=== PATIENT | male | born 1975 | race Caucasian/White ===

== ENCOUNTER 2021-05-28 18:09 | Observation (INO) ==
[2021-05-28 18:36] LABS: Basophils # (auto) 0.04 K/uL (0-0.2); Basophils % (auto) 0.6 %; Eosinophils # (auto) 0.31 K/uL (0-0.5); Eosinophils % (auto) 4.4 %; Hematocrit (blood only) 39.5 % (42-52); Hemoglobin 13.2 g/dL (14.0-18.0); Immature Granulocytes # (auto) 0.01 K/uL (0.00-0.02); Immature Granulocytes % (auto) 0.1 %; Lymphocytes # (auto) 1.99 K/uL (1.2-3.4); Lymphocytes % (auto) 28.2 %; Mean Corpuscular Hemoglobin 29.5 pg (25-34); Mean Corpuscular Hgb Conc 33.4 g/dL (32-36); Mean Corpuscular Volume 88.4 fL (80-100); Mean Platelet Volume 9.2 fL (7.4-10.4); Monocytes # (auto) 0.75 K/uL (0.11-0.59); Monocytes % (auto) 10.6 %; Neutrophils # (auto) 3.96 K/uL (1.4-6.5); Neutrophils % (auto) 56.1 %; Platelet Count 350 K/uL (130-400); RDW Coefficient of Variation 12.8 % (11.5-14.5); RDW Standard Deviation 41.3 fL (36.4-46.3); Red Blood Count 4.47 M/uL (4.7-6.1); White Blood Count 7.06 K/uL (4.8-10.8)
[2021-05-28 18:46] LABS: Partial Thromboplastin Time 26.5 Seconds (21.0-31.0); Prothrombin Time 10.3 Seconds (9.0-12.0)
[2021-05-28 19:02] LABS: Alanine Aminotransferase 33 U/L (12-78); Albumin Level 3.4 gm/dl (3.4-5.0); Aspartate Aminotransferase 24 U/L (15-37); Blood Urea Nitrogen 14 mg/dl (7-18); Calcium 8.3 mg/dl (8.5-10.1); Carbon Dioxide 25 mmol/L (21-32); Chloride 111 mmol/L (98-107); Creatinine Clr Calc Pharmacy 139.9 ml/min; Est GFR (African American) 102.7 ml/min; Est GFR (Non-African American) 88.6 ml/min; Glucose 103 mg/dl (70-99); Potassium 3.5 mmol/L (3.5-5.1); Sodium 143 mmol/L (136-145)
[2021-05-28 19:06] LABS: Alkaline Phosphatase 82 U/L (45-117); Bilirubin,Total 0.4 mg/dl (0.2-1); Globulin 3.6 gm/dl (2.5-4.0); Troponin I < 0.015 ng/ml (0-0.045)
--- NOTE | 2021-05-28 19:30 | XRay Report ---
XR chest 1V portable CLINICAL HISTORY: Atypical chest pain TECHNIQUE: Single frontal radiograph of the chest was obtained. Comparison: Comparison is made to chest one view 01/18/2011 FINDINGS: No lines and tubes are seen. The cardiomediastinal silhouette is normal. The lungs are clear. No evid ence of pleural effusion or pneumothorax. IMPRESSION: No acute chest disease. ACT 112: Negative or not required by law. Electronically signed by: Hayden Pratt M.D. 05/28/2021 7:29 PM
--- NOTE | 2021-05-28 19:57 | Emergency Department Note ---
History of Present Illness General Chief complaint: Chest Pain Stated complaint: CHEST PAIN Time Seen by Provider: 05/28/21 19:53 History of Present Illness Maximum Pain Intensity: 3 This is a 46-year-old male with a past medical history significant for that of RA, CHENG that presents to the emergency department via private vehicle with complaints of "chest pain". This began 1-1.5 hrs ago (15 minutes prior to arrival). He initially felt off/unwell followed by some nausea/dizziness and dry heaving. Then he felt like he was punched in the chest. Mild left hand finger tingling and right hand finger tingling reported with this sensation. He does have a hx of GERD but this feels different. This morning he also had some neck pain. Recently he also notes that he was diagnosed with "walking pneumonia" last Sunday via telehealth visit. He is on antibiotics, doxycycline. Current discomfort 07/18. He has been compliant with his medications. At this present time he notes that he is feeling better but still does not quite feel himself. Home Medications Medication Instructions Recorded Confirmed Type amitriptyline 10 mg tablet 40 mg PO HS 03/08/19 05/28/21 History hydroxychloroquine 200 mg tablet 400 mg PO HS 03/08/19 05/28/21 History (Plaquenil) leflunomide 20 mg tablet 20 mg PO HS 03/08/19 05/28/21 History cetirizine 10 mg tablet 10 mg PO DAILY PRN 03/09/19 05/28/21 History epinephrine 0.3 mg/0.3 mL 0.3 mg IM Q3H PRN #1 ea 03/12/19 05/28/21 Rx injection, auto-injector (EpiPen 2-Dillon) doxycycline hyclate 100 mg capsule 100 mg PO BID 05/28/21 05/28/21 History montelukast 10 mg tablet 10 mg PO QAM 05/28/21 05/28/21 History omeprazole 20 mg capsule,delayed 20 mg PO BID 05/28/21 05/28/21 History release Allergies Allergy/AdvReac Type Severity Reaction Status Date / Time adalimumab [From Humira] Allergy Unknown Unverified 05/28/21 20:20 Past Med/Surg History Medical History (Updated 05/28/21 @ 22:00 by Chapin Pang PA-C) Lung nodules CHENG (obstructive sleep apnea) Rheumatoid arthritis Surgical History History of appendectomy Family History Mother Breast cancer Father Heart disease Social History Smoking Status: Never smoker Second Hand Exposure: No; Do You Dip or Chew Tobacco: No; Tobacco Cessation Education Requested by Patient: No Hx Alcohol Use: Yes Alcohol type: beer Hx Substance Use: No Preferred Language: Khmer Communication Ability: Effective Field Tax Auditor Required: No Beliefs That Will Affect Care: None marital status: Current Living Situation: Spouse current occupational status: employed Other Information That Helps Us Care for You: No Feels Safe at Home: Yes Safety Concerns: Feels Safe At This Time Assistive Devices: None Review of Systems A total of 10 systems reviewed and were otherwise negative Physical Exam Vital Signs Vital Signs - 24 hr 05/28/21 18:14 05/28/21 20:00 05/28/21 20:39 Temperature 36.7 C Temperature Source Oral Pulse Rate 94 H 83 Pulse Rate [Finger] 82 Pulse Rate from SpO2 Sensor 83 Pulse Rhythm [Finger] Regular Respiratory Rate 20 18 13 Respiratory Effort / Characteristics Non-Labored Spontaneous Non-Labored Spontaneous Respiratory Depth Normal Normal Respiratory Pattern Regular Regular Blood Pressure 165/115 H 166/92 H Blood Pressure [Right Arm] 161/95 H Blood Pressure Mean 131 116 Blood Pressure Mean [Right Arm] 117 Blood Pressure Position [Right Arm] Sitting Pulse Oximetry 97 94 96 Oxygen Delivery Method Room Air Room Air Sepsis Recent Fever Within 48 Hours No Sepsis New/Unexplained Change in Mental Status No Sepsis Action Taken by Nursing No Action Required 05/28/21 21:35 05/28/21 22:00 05/28/21 22:30 Temperature Temperature Source Pulse Rate 73 71 79 Pulse Rate [Finger] Pulse Rate from SpO2 Sensor 71 77 Pulse Rhythm [Finger] Respiratory Rate 18 11 L 15 Respiratory Effort / Characteristics Respiratory Depth Respiratory Pattern Blood Pressure 154/105 H Blood Pressure [Right Arm] Blood Pressure Mean 121 Blood Pressure Mean [Right Arm] Blood Pressure Position [Right Arm] Pulse Oximetry 97 99 98 Oxygen Delivery Method Sepsis Recent Fever Within 48 Hours Sepsis New/Unexplained Change in Mental Status Sepsis Action Taken by Nursing VITAL SIGNS - Vital signs and nursing notes were reviewed. Stable and afebrile. GENERAL - 46-year-old male appearing his stated age who is in no acute distress. Communicates well with provider and answers questions appropriately. SKIN - Without rashes. HEAD - NC/AT. EYES - PERRL with EOMI bilaterally. Sclera anicteric. EARS - No deformities of external structures noted on gross examination bilaterally. NOSE - Midline and without cyanosis. No epistaxis or purulent drainage noted. MOUTH/OROPHARYNX - Without perioral cyanosis. NECK - Neck with FROM. No nuchal rigidity. LUNGS - Chest wall symmetric without accessory muscle use, intercostals retractions, or central cyanosis. Normal vesicular breath sounds CTA B/L. No wheezes, rales, or rhonchi appreciated. CARDIAC - RRR with S1/S2. No murmur, rubs, or gallops appreciated. ABDOMEN - Abdominal contour normal without pulsations or visible masses. BS normoactive all four quadrants. No tenderness, palpable masses, hepatosplenomega ly, or ascites noted. EXTREMITIES - No clubbing or peripheral cyanosis. +5/5 strength noted in UE/LE bilaterally. NEUROLOGIC - Cranial nerves II through XII grossly intact. PSYCH - A&O, and cooperates fully with examiner. Pt is very pleasant and interacts well with examiner. Course Administered Medications Amitriptyline HCl (Amitriptyline Hcl 10 Mg Tab) 40 mg PO NADJA Stop: 06/27/21 23:47 Last Admin: 05/29/21 01:05 Dose: 40 mg Documented by: [id number] Hydroxychloroquine Sulfate (Hydroxychloroquine Sulfate 200 Mg Tab) 400 mg PO NADJA Stop: 06/28/21 20:59 Last Admin: 05/29/21 01:52 Dose: 400 mg Documented by: [id number] Potassium Chloride 40 meq/ (Sodium Chloride) 1,020 mls @ 60 mls/hr IV .Q17H STA Stop: 05/29/21 15:54 Last Admin: 05/29/21 00:05 Dose: 60 mls/hr Documented by: [id number] Leflunomide (Leflunomide 10 Mg Tab) 20 mg PO HS NADJA Stop: 06/28/21 20:59 Last Admin: 05/29/21 01:53 Dose: 20 mg Documented by: [id number] Pantoprazole Sodium (Pantoprazole 40 Mg Tab) 40 mg PO BID NADJA Stop: 06/28/21 00:29 Last Admin: 05/29/21 01:06 Dose: 40 mg Documented by: [id number] Discontinued Medications Calcium Gluconate () 1,000 mg in 60 mls @ 240 mls/hr IV NOW STA Stop: 05/28/21 22:11 Last Infusion: 05/29/21 00:54 Dose: 0 mls/hr Documented by: [id number] Admin: 05/28/21 23:24 Dose: 240 mls/hr Documented by: [id number] Promethazine HCl (Phenergan) 12.5 mg in 50.5 mls @ 202 mls/hr IV NOW STA Stop: 05/28/21 23:08 Last Infusion: 05/29/21 00:04 Dose: 0 mls/hr Documented by: [id number] Admin: 05/28/21 23:46 Dose: 202 mls/hr Documented by: [id number] Ioversol (Optiray 320 125ml) 117 ml IV ONCE ONE Stop: 05/28/21 21:29 Last Admin: 05/28/21 21:28 Dose: 117 ml Documented by: [id number] Nitroglycerin (Nitroglycerin Sl 0.4 Mg/Tab Tab) 0.4 mg SL NOW STA Stop: 05/28/21 22:49 Last Admin: 05/28/21 23:44 Dose: 0.4 mg Documented by: [id number] Medical Decision Making Laboratory Data Result diagrams: 05/28/21 18:20 05/28/21 18:20 Lab Results 05/28/21 05/28/21 05/28/21 Range/Units 18:17 18:20 18:20 WBC 7.06 (4.8-10.8) K/uL RBC 4.47 L (4.7-6.1) M/uL Hgb 13.2 L (14.0-18.0) g/dL Hct 39.5 L (42-52) % MCV 88.4 (80-100) fL MCH 29.5 (25-34) pg MCHC 33.4 (32-36) g/dL RDW Std Deviation 41.3 (36.4-46.3) fL RDW Coeff of Jania 12.8 (11.5-14.5) % Plt Count 350 (130-400) K/uL MPV 9.2 (7.4-10.4) fL Immature Gran % (Auto) 0.1 % Neut % (Auto) 56.1 % Lymph % (Auto) 28.2 % [place] % (Auto) 10.6 % Eos % (Auto) 4.4 % Baso % (Auto) 0.6 % Neut # (Auto) 3.96 (1.4-6.5) K/uL Lymph # (Auto) 1.99 (1.2-3.4) K/uL [place] # (Auto) 0.75 H (0.11-0.59) K/uL Eos # (Auto) 0.31 (0-0.5) K/uL Baso # (Auto) 0.04 (0-0.2) K/uL Immature Gran # (Auto) 0.01 (0.00-0.02) K/uL PT 10.3 (9.0-12.0) Seconds INR 1.0 (0.9-1.1) APTT 26.5 (21.0-31.0) Seconds PTT Ratio 1.0 D-Dimer (0-500) ug/L FEU Sodium (136-145) mmol/L Potassium (3.5-5.1) mmol/L Chloride (98-107) mmol/L Carbon Dioxide (21-32) mmol/L Anion Gap (3-11) BUN (7-18) mg/dl Creatinine (0.6-1.4) mg/dl Est Cr Clr Drug Dosing ml/min Est GFR ( Amer) ml/min Est GFR (Non-Af Amer) ml/min BUN/Creatinine Ratio (10-20) Glucose (70-99) mg/dl Calcium (8.5-10.1) mg/dl Magnesium 2.0 (1.8-2.4) mg/dl Total Bilirubin (0.2-1) mg/dl AST (15-37) U/L ALT (12-78) U/L Alkaline Phosphatase (45-117) U/L Troponin I (0-0.045) ng/ml Total Protein (6.4-8.2) gm/dl Albumin (3.4-5.0) gm/dl Globulin (2.5-4.0) gm/dl Albumin/Globulin Ratio (0.9-2) Lipase 88 (73-393) U/L Lyme Disease IgG Ab (Negative) Lyme Disease IgM Ab (Negative) SARS-CoV-2, RNA, NAAT (NEGATIVE) 05/28/21 05/28/21 05/28/21 Range/Units 18:20 18:20 18:25 WBC (4.8-10.8) K/uL RBC (4.7-6.1) M/uL Hgb (14.0-18.0) g/dL Hct (42-52) % MCV (80-100) fL MCH (25-34) pg MCHC (32-36) g/dL RDW Std Deviation (36.4-46.3) fL RDW Coeff of Jania (11.5-14.5) % Plt Count (130-400) K/uL MPV (7.4-10.4) fL Immature Gran % (Auto) % Neut % (Auto) % Lymph % (Auto) % [place] % (Auto) % Eos % (Auto) % Baso % (Auto) % Neut # (Auto) (1.4-6.5) K/uL Lymph # (Auto) (1.2-3.4) K/uL [place] # (Auto) (0.11-0.59) K/uL Eos # (Auto) (0-0.5) K/uL Baso # (Auto) (0-0.2) K/uL Immature Gran # (Auto) (0.00-0.02) K/uL PT (9.0-12.0) Seconds INR (0.9-1.1) APTT (21.0-31.0) Seconds PTT Ratio D-Dimer 290 (0-500) ug/L FEU Sodium 143 (136-145) mmol/L Potassium 3.5 (3.5-5.1) mmol/L Chloride 111 H (98-107) mmol/L Carbon Dioxide 25 (21-32) mmol/L Anion Gap 7.0 (3-11) BUN 14 (7-18) mg/dl Creatinine 1.00 (0.6-1.4) mg/dl Est Cr Clr Drug Dosing 139.9 ml/min Est GFR ( Amer) 102.7 ml/min Est GFR (Non-Af Amer) 88.6 ml/min BUN/Creatinine Ratio 14.0 (10-20) Glucose 103 H (70-99) mg/dl Calcium 8.3 L (8.5-10.1) mg/dl Magnesium (1.8-2.4) mg/dl Total Bilirubin 0.4 (0.2-1) mg/dl AST 24 (15-37) U/L ALT 33 (12-78) U/L Alkaline Phosphatase 82 (45-117) U/L Troponin I < 0.015 (0-0.045) ng/ml Total Protein 7.0 (6.4-8.2) gm/dl Albumin 3.4 (3.4-5.0) gm/dl Globulin 3.6 (2.5-4.0) gm/dl Albumin/Globulin Ratio 1.0 (0.9-2) Lipase (73-393) U/L Lyme Disease IgG Ab Negative (Negative) Lyme Disease IgM Ab Negative (Negative) SARS-CoV-2, RNA, NAAT (NEGATIVE) 05/28/21 05/28/21 Range/Units 21:35 21:35 WBC (4.8-10.8) K/uL RBC (4.7-6.1) M/uL Hgb (14.0-18.0) g/dL Hct (42-52) % MCV (80-100) fL MCH (25-34) pg MCHC (32-36) g/dL RDW Std Deviation (36.4-46.3) fL RDW Coeff of Jania (11.5-14.5) % Plt Count (130-400) K/uL MPV (7.4-10.4) fL Immature Gran % (Auto) % Neut % (Auto) % Lymph % (Auto) % [place] % (Auto) % Eos % (Auto) % Baso % (Auto) % Neut # (Auto) (1.4-6.5) K/uL Lymph # (Auto) (1.2-3.4) K/uL [place] # (Auto) (0.11-0.59) K/uL Eos # (Auto) (0-0.5) K/uL Baso # (Auto) (0-0.2) K/uL Immature Gran # (Auto) (0.00-0.02) K/uL PT (9.0-12.0) Seconds INR (0.9-1.1) APTT (21.0-31.0) Seconds PTT Ratio D-Dimer (0-500) ug/L FEU Sodium (136-145) mmol/L Potassium (3.5-5.1) mmol/L Chloride (98-107) mmol/L Carbon Dioxide (21-32) mmol/L Anion Gap (3-11) BUN (7-18) mg/dl Creatinine (0.6-1.4) mg/dl Est Cr Clr Drug Dosing ml/min Est GFR ( Amer) ml/min Est GFR (Non-Af Amer) ml/min BUN/Creatinine Ratio (10-20) Glucose (70-99) mg/dl Calcium (8.5-10.1) mg/dl Magnesium (1.8-2.4) mg/dl Total Bilirubin (0.2-1) mg/dl AST (15-37) U/L ALT (12-78) U/L Alkaline Phosphatase (45-117) U/L Troponin I < 0.015 (0-0.045) ng/ml Total Protein (6.4-8.2) gm/dl Albumin (3.4-5.0) gm/dl Globulin (2.5-4.0) gm/dl Albumin/Globulin Ratio (0.9-2) Lipase (73-393) U/L Lyme Disease IgG Ab (Negative) Lyme Disease IgM Ab (Negative) SARS-CoV-2, RNA, NAAT NEGATIVE (NEGATIVE) Imaging Data Radiologist's Impression: Chest X-Ray 05/28/21 18:17 XR chest 1V portable CLINICAL HISTORY: Atypical chest pain TECHNIQUE: Single frontal radiograph of the chest was obtained. Comparison: Comparison is made to chest one view 01/18/2011 FINDINGS: No lines and tubes are seen. The cardiomediastinal silhouette is normal. The lungs are clear. No evidence of pleural effusion or pneumothorax. IMPRESSION: No acute chest disease. ACT 112: Negative or not required by law. Electronically signed by: Hayden Pratt M.D. 05/28/2021 7:29 PM Chest CTA 05/28/21 20:21 CT angio chest dissec wo/w con CLINICAL HISTORY: sudden onset chest pain, explosion like sensation TECHNIQUE: Multidetector row helical CT of the chest was performed before and after injection of IV contrast. Coronal and sagittal reformations were obtained. Automated dose lowering techniques and/or adjustment according to patient size were utilized for this exam. Comparison: Comparison is made to CT chest 07/15/2010 FINDINGS: Lungs and pleura: Normal. Heart and pericardium: Heart size is normal. No pericardial effusion. Vessels: No aortic dissection is seen. Mediastinum and bharath: Unremarkable. Chest wall and lower neck: Unremarkable. Abdomen: Hepatic steatosis is seen. Bones: Unremarkable. IMPRESSION: No acute abnormality and in particular no evidence of acute aortic injury. ACT 112: Negative or not required by law. Electronically signed by: Hayden Pratt M.D. 05/28/2021 9:37 PM [facility] Narrative Patient was seen and evaluated as above in room C05. Review was performed of triage nursing notes and vital signs. I did review pertinent previous visits and patient history. After obtaining a thorough history and physical examination the above work up was performed. Patient presents to us today with what started as some nausea, dizziness, lightheadedness, dry heaving followed by a punch-like sensation to his chest that has subsided but is still mildly present. He is nontoxic on examination. He is hypertensive but otherwise his vital signs are stable. No personal history of ME however he notes his father had an ME around age 55. Options of care were discussed with the patient. IV access was established. Labs were drawn. EKG reveals no evidence of ischemic change. Chest x-ray revea ls no emergent process. Laboratory studies reveal no leukocytosis. Mild anemia noted with hemoglobin of 13.2. No emergent metabolic disturbance. Mild hypocalcemia at 8.3. Troponin x2 is negative. Covid test negative. Patient's heart score at this time is between a 3 and a 4. Although certainly this could be reflux as the patient is on doxycycline at this time and has a history of GERD however he notes that this is not anything similar to his previous episodes of GERD. With the patient's symptoms at this time and the patient still not quite feeling right in the setting of chest discomfort I do believe that further evaluation and management in the inpatient setting would be warranted to rule out cardiac etiologies. I did obtain a CTA of the chest here and this was negative for dissection or other emergent process. Case discussed with the attending physician as well as the hospitalist. Please refer to further documentation regarding his stay. Patient amenable to plan of care and staying in the hospital for further work- up. Case was discussed with the attending physician. EKG was reviewed by myself and found to be Normal Sinus Rhythm at a rate of 85 beats per minute and per my interpretation reveals no ST elevation or evidence of ischemia. QTc 445.QRS 106. Heart score: 3-4 An order was placed for continuous cardiac monitoring. The monitor shows a rate of 73 with sinus rhythm. I attest that I have personally reviewed the patient medication list. GCS: 15 In the evaluation and treatment of this patient, the following differential diagnoses were considered: ME, ASC, Dysrhythmia, Angina, Mediastinitis, GERD, Esophagitis, PE, Pneumonia, Bronchitis, Costochondritis, Rib Fracture, Zoster. Impression & Plan Chest pain Discharge Plan Visit Data Chief Complaint: Chest Pain Stated Complaint: CHEST PAIN ED Provider: [facility] ED Midlevel Provider: Chapin Pang Discharge Problem: Chest pain Patient Disposition: Admitted As Inpatient Condition: Good Discharge Instructions Interventions: ED Discharge Assessment Last Done: 05/28/21 23:47
[2021-05-28 20:10] LABS: D Dimer 290 ug/L FEU (0-500)
--- NOTE | 2021-05-28 20:30 | Emergency Department Note ---
ED Visit Note Patient was evaluated with the physician plastic surgery assistant. Please see his note for full details. Patient presented to the emergency department with an acute episode of chest pain that happened shortly prior to arrival. States it was relatively severe in nature but lasted less than a minute. EKG does not show any acute ischemic changes, troponin is negative x1. CT angiography of the chest was obtained and does not show any evidence of aortic dissection. Patient will be admitted to the hospitalist service for ACS rule out. Patient is in agreement to the above plan, he was admitted in stable condition. .
[2021-05-28] MEDS ORDERED: OPTIRAY 320 125ml IV ONE (21:28)
--- NOTE | 2021-05-28 21:39 | CT Scan Report ---
CT angio chest dissec wo/w con CLINICAL HISTORY: sudden onset chest pain, explosion like sensation TECHNIQUE: Multidetector row helical CT of the chest was performed before and after injection of IV c ontrast. Coronal and sagittal reformations were obtained. Automated dose lowering techniques and/or a djustment according to patient size were utilized for this exam. Comparison: Comparison is made to CT chest 07/15/2010 FINDINGS: Lungs and pleura: Normal. Heart and pericardium: Heart size is normal. No pericardial effusion. Vessels: No aortic dissection is seen. Mediastinum and bharath: Unremarkable. Chest wall and lower neck: Unremarkable. Abdomen: Hepatic steatosis is seen. Bones: Unremarkable. IMPRESSION: No acute abnormality and in particular no evidence of acute aortic injury. ACT 112: Negative or not required by law. Electronically signed by: Hayden Pratt M.D. 05/28/2021 9:37 PM
[2021-05-28] MEDS ORDERED: CALCIUM GLUCONATE 1,000 MG/60 ML BAG IV STA (21:57)
[2021-05-28] MEDS ORDERED: NITROGLYCERIN SL 0.4 MG/TAB TAB SL STA (22:48)
--- NOTE | 2021-05-28 22:50 | History & Physical Report ---
Date of Service May 28, 2021 Assessment & Plan (1) Atypical chest pain: Plan: Rule out cardiac ischemia given patient risk factors hx rheumatoid arthritis on Plaquenil and Areva, patient follows with [facility]ology, Actemra Rx contemplated as per patient CHENG, CPAP noncompliant Morbid obesity Situational hypertension New onset anemia, possibly from spontaneous left chest wall hematoma from 3 weeks ago Bronchitis likely viral, equivocal response to outpatient Doxycycline Rx GERD, stable on regimen past tobacco abuse OBS PCU Analgesia TTE, Cardiology consult in a.m. RE chest pain Anemia work-up, transfuse PRBC if hemoglobin less than 7 and or from symptomatic anemia DVT prophylaxis. Lovenox subcu Full code Patient requesting updates for providers. Ms. Surekha Pitt, contact #[phone]. Text document was generated using Yola voice recognition software. It may contain grammatical or spelling errors. Kindly contact undersigned for clarification of any documentation item in question. History of Present Illness Chief Complaint: Left-sided chest pain Primary Care Provider: Ward Ayala MD History obtained from patient, family, and records. Medical history is significant for rheumatoid arthritis on Plaquenil and Areva, CHENG (CPAP intolerant), GERD, past tobacco abuse. 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 3 weeks ago, patient noted strange bruising on the left chest wall (under the breast) without recollection of trauma. Left pectoral ecchymosis noted on exam at PCP's office at that time. Outpatient ultrasound done 2 weeks ago showed echogenic subcutaneous tissue with small 3 x 2 x 5 mm cystic mass reflecting contusion versus mild resolving hematoma. Shortly after PCPs visit 3 weeks ago, patient noted cough productive of white sputum with wheezing, chest tightness, no shortness of breath. Sick contacts at home. Patient completed COVID-19 vaccination. PCP prescribed Doxycycline course on video appointment for possible atypical pneumonia. No outpatient x- rays done. Minimal improvement of cough symptoms to antibiotic regimen as per patient. Few hours ago, patient started feeling unwell. Subsequent nausea, dizziness, dry heaving followed by achy left-sided chest pain. Punching sensation as per patient. Not pleuritic. Chest pain not really worsened with coughing as per patient. Different from reflux. No actual abdominal pain. No unusual stress at home. No relief with nitroglycerin administered at the ER. MEDICAL HISTORY: As above. 2020 normal EGD SURGERIES: Appendectomy. FAMILY HISTORY: Heart disease. Grandfather had a heart attack at age 40. PERSONAL SOCIAL HISTORY: Past tobacco abuse, occasional EtOH intake, senior software project manager. Allergies Allergy/AdvReac Type Severity Reaction Status Date / Time adalimumab [From Humira] Allergy Unknown Unverified 05/28/21 20:20 Home Medications Medication Instructions Recorded Confirmed Type amitriptyline 10 mg tablet 40 mg PO HS 03/08/19 05/28/21 History hydroxychloroquine 200 mg tablet 400 mg PO HS 03/08/19 05/28/21 History (Plaquenil) leflunomide 20 mg tablet 20 mg PO HS 03/08/19 05/28/21 History cetirizine 10 mg tablet 10 mg PO DAILY PRN 03/09/19 05/28/21 History epinephrine 0.3 mg/0.3 mL 0.3 mg IM Q3H PRN #1 ea 03/12/19 05/28/21 Rx injection, auto-injector (EpiPen 2-Dillon) doxycycline hyclate 100 mg capsule 100 mg PO BID 05/28/21 05/28/21 History montelukast 10 mg tablet 10 mg PO QAM 05/28/21 05/28/21 History omeprazole 20 mg capsule,delayed 20 mg PO BID 05/28/21 05/28/21 History release Past Med/Surg History Medical History (Updated 05/29/21 @ 06:29 by Harry Gastelum MD) Lung nodules CHENG (obstructive sleep apnea) Rheumatoid arthritis Surgical History History of appendectomy Family History Mother Breast cancer Father Heart disease Social History Smoking Status: Never smoker Second Hand Exposure: No; Do You Dip or Chew Tobacco: No; Tobacco Cessation Education Requested by Patient: No Hx Alcohol Use: Yes Alcohol type: beer Hx Substance Use: No Preferred Language: Bengali Communication Ability: Effective Revolving Inventory Clerk Required: No Beliefs That Will Affect Care: None marital status: Current Living Situation: Spouse current occupational status: employed Other Information That Helps Us Care for You: No Feels Safe at Home: Yes Safety Concerns: Feels Safe At This Time Assistive Devices: None Review of Systems Review of Systems: As per HPI, all 10 systems reviewed, all other ROS negative Physical Exam Physical Exam: GENERAL: Comfortable, morbidly obese, slightly anxious, no respiratory distress SKIN: Normal color, warm HEENT: Partial alopecia, pink palpebral conjunctivae, no ptosis, dry buccal mucosa NECK : Supple, no tenderness CHEST : Decreased breath sounds, occasional expiratory wheezes, no chest wall tenderness HEART : RRR, no obvious murmurs ABDOMEN: Some distention, nontender RECTAL : Intact sphincter, brown stool (FOBT negative) EXTREMITIES : No LE swelling/tenderness, no other conspicuous deformities noted NEUROLOGIC : Coherent, no facial asymmetry, no other gross focality Results & Data Results & Data ([facility]) Vital Signs (Past 12 Hours) Vital Signs Temp Pulse Pulse Resp BP BP Pulse Ox 05/28/21 21:35 73 18 154/105 H 97 05/28/21 20:39 83 13 166/92 H 96 05/28/21 20:00 82 18 161/95 H 94 05/28/21 18:14 36.7 C 94 H 20 165/115 H 97 Laboratory Results Laboratory Results WBC 7.06 K/uL (4.8-10.8) 05/28/21 18:20 RBC 4.47 M/uL (4.7-6.1) L 05/28/21 18:20 Hgb 13.2 g/dL (14.0-18.0) L 05/28/21 18:20 Hct 39.5 % (42-52) L 05/28/21 18:20 MCV 88.4 fL (80-100) 05/28/21 18:20 MCH 29.5 pg (25-34) 05/28/21 18:20 MCHC 33.4 g/dL (32-36) 05/28/21 18:20 RDW Std Deviation 41.3 fL (36.4-46.3) 05/28/21 18:20 RDW Coeff of Jania 12.8 % (11.5-14.5) 05/28/21 18:20 Plt Count 350 K/uL (130-400) 05/28/21 18:20 MPV 9.2 fL (7.4-10.4) 05/28/21 18:20 Immature Gran % (Auto) 0.1 % 05/28/21 18:20 Neut % (Auto) 56.1 % 05/28/21 18:20 Lymph % (Auto) 28.2 % 05/28/21 18:20 [place] % (Auto) 10.6 % 05/28/21 18:20 Eos % (Auto) 4.4 % 05/28/21 18:20 Baso % (Auto) 0.6 % 05/28/21 18:20 Neut # (Auto) 3.96 K/uL (1.4-6.5) 05/28/21 18:20 Lymph # (Auto) 1.99 K/uL (1.2-3.4) 05/28/21 18:20 [place] # (Auto) 0.75 K/uL (0.11-0.59) H 05/28/21 18:20 Eos # (Auto) 0.31 K/uL (0-0.5) 05/28/21 18:20 Baso # (Auto) 0.04 K/uL (0-0.2) 05/28/21 18:20 Immature Gran # (Auto) 0.01 K/uL (0.00-0.02) 05/28/21 18:20 PT 10.3 Seconds (9.0-12.0) 05/28/21 18:20 INR 1.0 (0.9-1.1) 05/28/21 18:20 APTT 26.5 Seconds (21.0-31.0) 05/28/21 18:20 PTT Ratio 1.0 05/28/21 18:20 D-Dimer 290 ug/L FEU (0-500) 05/28/21 18:20 Sodium 143 mmol/L (136-145) 05/28/21 18:20 Potassium 3.5 mmol/L (3.5-5.1) 05/28/21 18:20 Chloride 111 mmol/L (98-107) H 05/28/21 18:20 Carbon Dioxide 25 mmol/L (21-32) 05/28/21 18:20 Anion Gap 7.0 (3-11) 05/28/21 18:20 BUN 14 mg/dl (7-18) 05/28/21 18:20 Creatinine 1.00 mg/dl (0.6-1.4) 05/28/21 18:20 Est Cr Clr Drug Dosing 139.9 ml/min 05/28/21 18:20 Est GFR ( Amer) 102.7 ml/min 05/28/21 18:20 Est GFR (Non-Af Amer) 88.6 ml/min 05/28/21 18:20 BUN/Creatinine Ratio 14.0 (10-20) 05/28/21 18:20 Glucose 103 mg/dl (70-99) H 05/28/21 18:20 Calcium 8.3 mg/dl (8.5-10.1) L 05/28/21 18:20 Magnesium 2.0 mg/dl (1.8-2.4) 05/28/21 18:17 Total Bilirubin 0.4 mg/dl (0.2-1) 05/28/21 18:20 AST 24 U/L (15-37) 05/28/21 18:20 ALT 33 U/L (12-78) 05/28/21 18:20 Alkaline Phosphatase 82 U/L (45-117) 05/28/21 18:20 Troponin I < 0.015 ng/ml (0-0.045) 05/28/21 21:35 Total Protein 7.0 gm/dl (6.4-8.2) 05/28/21 18:20 Albumin 3.4 gm/dl (3.4-5.0) 05/28/21 18:20 Globulin 3.6 gm/dl (2.5-4.0) 05/28/21 18:20 Albumin/Globulin Ratio 1.0 (0.9-2) 05/28/21 18:20 Lipase 88 U/L (73-393) 05/28/21 18:17 SARS-CoV-2, RNA, NAAT NEGATIVE (NEGATIVE) 05/28/21 21:35 Impressions Chest X-Ray 05/28/21 18:17 XR chest 1V portable CLINICAL HISTORY: Atypical chest pain TECHNIQUE: Single frontal radiograph of the chest was obtained. Comparison: Comparison is made to chest one view 01/18/2011 FINDINGS: No lines and tubes are seen. The cardiomediastinal silhouette is normal. The lungs are clear. No evidence of pleural effusion or pneumothorax. IMPRESSION: No acute chest disease. ACT 112: Negative or not required by law. Electronically signed by: Hayden Pratt M.D. 05/28/2021 7:29 PM Chest CTA 05/28/21 20:21 CT angio chest dissec wo/w con CLINICAL HISTORY: sudden onset chest pain, explosion like sensation TECHNIQUE: Multidetector row helical CT of the chest was performed before and after injection of IV contrast. Coronal and sagittal reformations were obtained. Automated dose lowering techniques and/or adjustment according to patient size were utilized for this exam. Comparison: Comparison is made to CT chest 07/15/2010 FINDINGS: Lungs and pleura: Normal. Heart and pericardium: Heart size is normal. No pericardial effusion. Vessels: No aortic dissection is seen. Mediastinum and bharath: Unremarkable. Chest wall and lower neck: Unremarkable. Abdomen: Hepatic steatosis is seen. Bones: Unremarkable. IMPRESSION: No acute abnormality and in particular no evidence of acute aortic injury. ACT 112: Negative or not required by law. Electronically signed by: Hayden Pratt M.D. 05/28/2021 9:37 PM Diagnostic Findings EKG as per my interpretation: Rate 85, NSR, normal axis, incomplete RBBB, no ischemia
[2021-05-28] MEDS ORDERED: PROMETHAZINE 12.5 MG/50.5 ML BAG IV STA (22:54)
[2021-05-28] MEDS ORDERED: POTASSIUM CHLORIDE 40 MEQ in SODIUM CHLORIDE 0.45 % 1,000 ML IV STA (22:55)
[2021-05-28 23:35] LABS: Lyme Ab IgG w/WB Rflx Negative (Negative); Lyme Ab IgM w/WB Rflx Negative (Negative)
[2021-05-28] MEDS ORDERED: CETIRIZINE HCL 10 MG TABLET PO PRN (23:48)
[2021-05-28] MEDS ORDERED: PANTOprazole 40 MG TAB PO SCH (23:48)
[2021-05-28] MEDS ORDERED: NITROGLYCERIN SL 0.4 MG/TAB TAB SL PRN (23:48)
[2021-05-28] MEDS ORDERED: PROMETHAZINE HCL 12.5 MG in SODIUM CHLORIDE 0.9% 50 ML IV PRN (23:48)
[2021-05-28] MEDS ORDERED: traMADol HCL 50 MG TABLET PO PRN (23:48)
[2021-05-28] MEDS ORDERED: ACETAMINOPHEN 325 MG TAB PO PRN (23:48)
[2021-05-28] MEDS ORDERED: MoRPHine SULFATE 4 MG/ML 1 ML CARP\\VIAL IV PRN (23:48)
[2021-05-28] MEDS ORDERED: LORazepam 0.5 MG/1 ML VIAL IV PRN (23:48)
[2021-05-29] MEDS: AMITRIPTYLINE HCL 10 MG TAB PO SCH ×2 (01:05→20:17)
[2021-05-29] MEDS: PANTOprazole 40 MG TAB PO SCH ×3 (01:06→20:18)
[2021-05-29] MEDS: HYDROXYCHLOROQUINE SULFATE 200 MG TAB PO SCH ×2 (01:52→20:17)
[2021-05-29] MEDS: LEFLUNOMIDE 10 MG TAB PO SCH ×2 (01:53→20:17)
[2021-05-29 06:00] LABS: Basophils # (auto) 0.02 K/uL (0-0.2); Basophils % (auto) 0.3 %; Eosinophils # (auto) 0.24 K/uL (0-0.5); Eosinophils % (auto) 3.6 %; Hemoglobin 14.1 g/dL (14.0-18.0); Immature Granulocytes # (auto) 0.01 K/uL (0.00-0.02); Immature Granulocytes % (auto) 0.1 %; Lymphocytes # (auto) 1.74 K/uL (1.2-3.4); Lymphocytes % (auto) 26.1 %; Mean Corpuscular Hemoglobin 29.7 pg (25-34); Mean Corpuscular Hgb Conc 33.6 g/dL (32-36); Mean Corpuscular Volume 88.6 fL (80-100); Mean Platelet Volume 9.5 fL (7.4-10.4); Monocytes # (auto) 0.78 K/uL (0.11-0.59); Monocytes % (auto) 11.7 %; Neutrophils # (auto) 3.88 K/uL (1.4-6.5); Neutrophils % (auto) 58.2 %; Platelet Count 355 K/uL (130-400); RDW Coefficient of Variation 12.9 % (11.5-14.5); RDW Standard Deviation 41.3 fL (36.4-46.3); Red Blood Count 4.74 M/uL (4.7-6.1); Reticulocyte % 1.4 % (0.5-2.0); Reticulocytes # 0.07 10^6/uL (0.02-0.10); White Blood Count 6.67 K/uL (4.8-10.8)
[2021-05-29 06:09] LABS: Partial Thromboplastin Ratio 1.1; Partial Thromboplastin Time 28.1 Seconds (21.0-31.0)
[2021-05-29 06:18] LABS: BUN Creatinine Ratio 13.6 (10-20); Blood Urea Nitrogen 12 mg/dl (7-18); Calcium 8.9 mg/dl (8.5-10.1); Carbon Dioxide 27 mmol/L (21-32); Chloride 108 mmol/L (98-107); Creatinine Clr Calc Pharmacy 163.1 ml/min; Est GFR (African American) 118.8 ml/min; Est GFR (Non-African American) 102.5 ml/min; Glucose 98 mg/dl (70-99); Potassium 3.9 mmol/L (3.5-5.1); Sodium 138 mmol/L (136-145)
[2021-05-29 06:22] LABS: Chol HDL Ratio 3; Cholesterol 188 mg/dl (0-200); Ferritin 199.1 ng/ml (8-388); HDL Cholesterol 57 mg/dl; Iron 102 mcg/dl (35-175); LDL Cholesterol Calculated 112 mg/dl; Total Iron Binding Capacity 260 mcg/dl (250-450); Transferrin 208 mg/dl (200-360); Triglycerides 94 mg/dl (0-150); Troponin I < 0.015 ng/ml (0-0.045); VLDL Cholesterol 19 mg/dl
[2021-05-29] MEDS ORDERED: XOPENEX/ATROVENT 1.25mg/0.5MG NEB COMBO NEB PRN (06:39)
[2021-05-29 06:43] LABS: Folate (Folic Acid) > 20.00 ng/ml (>5.38); Vitamin B12 463 pg/ml (193-986)
[2021-05-29] MEDS ORDERED: IPRATROPIUM BROMIDE NEB SOLN 0.02% 2.5 ML VIAL INH PRN (06:45)
[2021-05-29] MEDS ORDERED: LEVALBUTEROL 1.25MG/0.5ML NEB INH PRN (06:45)
[2021-05-29] MEDS: MONTELUKAST SODIUM 10 MG TABLET PO SCH (10:00)
[2021-05-29] MEDS: ENOXAPARIN INJ 40 MG/0.4 ML SYR SQ SCH (10:00)
[2021-05-29] MEDS: DOXYCYCLINE HYCLATE 100 MG CAP PO SCH ×2 (10:00→20:18)
--- NOTE | 2021-05-29 10:30 | Electrocardiogram Report ---
Test Reason : Blood Pressure : / mmHG Vent. Rate : 085 BPM Atrial Rate : 085 BPM P-R Int : 156 ms QRS Dur : 106 ms QT Int : 374 ms P-R-T Axes : 055 022 050 degrees QTc Int : 445 ms Poor data quality, interpretation may be adversely affected Normal sinus rhythm Incomplete right bundle branch block Borderline ECG When compared with ECG of 19-JAN-2011 19:40, Incomplete right bundle branch block is now Present Confirmed by Rebel Bragg ([id number]) on 05/29/2021 10:30:08 AM Referred By: REFERRED SELF Confirmed By:Rebel Bragg
--- NOTE | 2021-05-29 12:41 | Cardiology Consultation ---
Date of Consultation May 29, 2021 Assessment & Plan (1) Atypical chest pain: (2) Rheumatoid arthritis: (3) CHENG (obstructive sleep apnea): (4) Hypertension: His chest discomfort is definitely atypical for angina and his ischemic work-up is unremarkable to this point. However, his blood pressure significantly elevated so I believe antihypertensive therapy is necessary at this time. I will start him on losartan 50 mg along with HCTZ 12.5 mg p.o. x1 now. This may be uptitrated as necessary. Consideration could also be given to adding amlodipine. Will require stress testing at some point but believe would be more prudent to control his blood pressure at this time and complete ischemic work-up as an outpatient. History of Present Illness Reason for Consultation: chest pain Requesting Physician: Jeff Attending Physician: Victorina Aguilar MD History of Present Illness Mr. Pitt is a very pleasant 46-year-old gentleman who presented to [facility] on 05/28/2021 with complaints of chest discomfort. The patient states that he was sitting when he suddenly felt his heart skip a beat. This was quickly followed by a coon sensation from the center of his chest that radiated down his bilateral upper extremities. This caused him concern and he presented to the emergency department. He denies any similar episodes since then but has had a dull chest ache ever since. Of note, he recently had a spontaneous chest wall bruise but states that this discomfort is different. He denies any cardiac history. Allergies Allergy/AdvReac Type Severity Reaction Status Date / Time adalimumab [From Humira] Allergy Unknown Unverified 05/28/21 20:20 Home Medications Medication Instructions Recorded Confirmed Type amitriptyline 10 mg tablet 40 mg PO HS 03/08/19 05/28/21 History hydroxychloroquine 200 mg tablet 400 mg PO HS 03/08/19 05/28/21 History (Plaquenil) leflunomide 20 mg tablet 20 mg PO HS 03/08/19 05/28/21 History cetirizine 10 mg tablet 10 mg PO DAILY PRN 03/09/19 05/28/21 History epinephrine 0.3 mg/0.3 mL 0.3 mg IM Q3H PRN #1 ea 03/12/19 05/28/21 Rx injection, auto-injector (EpiPen 2-Dillon) doxycycline hyclate 100 mg capsule 100 mg PO BID 05/28/21 05/28/21 History montelukast 10 mg tablet 10 mg PO QAM 05/28/21 05/28/21 History omeprazole 20 mg capsule,delayed 20 mg PO BID 05/28/21 05/28/21 History release Patient History Medical History (Updated 05/29/21 @ 12:39 by Braden Cohen DO) Lung nodules CHENG (obstructive sleep apnea) Rheumatoid arthritis Surgical History History of appendectomy Family History Mother Breast cancer Father Heart disease Social History Smoking Status: Never smoker Second Hand Exposure: No; Do You Dip or Chew Tobacco: No; Tobacco Cessation Education Requested by Patient: No Hx Alcohol Use: Yes Alcohol type: beer Hx Substance Use: No Preferred Language: Azeri Communication Ability: Effective Pouch Maker Required: No Beliefs That Will Affect Care: None marital status: Current Living Situation: Spouse current occupational status: employed Other Information That Helps Us Care for You: No Feels Safe at Home: Yes Safety Concerns: Feels Safe At This Time Assistive Devices: None Review of Systems Review of Systems: All systems reviewed & are unremarkable except as noted in HPI & below Physical Exam Physical Exam: Physical Exam: General: Awake, alert and oriented x 3. No acute distress. HEENT: Normocephalic, atraumatic. Pupils equal, round and reactive to light and accommodation. Extraocular muscles are intact. Anicteric sclera. Moist mucous membranes. Neck: No JVD. No bruit. Cardiovascular: Regular. No S-4. Normal S-1 and S-2. No S-3. No murmurs, rubs or gallops. Pulmonary: Clear to auscultation bilaterally. No rales, rhonchi, or wheezing. Abdomen: Bowel sounds x 4, soft. No rebound, guarding or tenderness. No organomegaly. Extremities: No clubbing, cyanosis or edema. +2 pedal pulses bilaterally. Skin: Warm and dry. Results & Data ([facility]) Vital Signs (Past 12 Hours) Vital Signs Temp Pulse Pulse Resp BP BP Pulse Ox 05/29/21 10:00 77 16 190/98 H 97 05/29/21 08:00 73 15 05/29/21 06:30 71 15 05/29/21 06:00 71 14 05/29/21 05:41 88 17 05/29/21 05:00 66 16 05/29/21 04:30 70 16 05/29/21 04:00 73 16 05/29/21 03:30 68 16 05/29/21 03:00 74 18 05/29/21 02:30 73 16 05/29/21 02:00 72 17 05/29/21 01:51 37 C 91 H 18 141/80 H 98 05/29/21 01:30 72 18 05/29/21 01:21 75 14
[2021-05-29] MEDS: NITROGLYCERIN 2% OINTMENT 30GM TUBE EXT SCH ×2 (13:30→20:18)
[2021-05-29] MEDS: LOSARTAN/HCTZ 50/12.5MG TAB PO SCH (15:04)
--- NOTE | 2021-05-29 17:20 | Hospitalist Progress Note ---
Date of Service May 29, 2021 Assessment & Plan (1) Atypical chest pain: (2) Hypertension: Plan: 46-year-old gentleman with medical history of RA on Plaquenil and Areva, CHENG [CPAP intolerant], GERD, past tobacco abuse presented 05/28 to our ED with complaint of left-sided chest pain few hours APPLICATIONS CONSULTANT described as punching sensation per patient, not worsened with coughing and different from his reflux. He is being managed for the following: #. Chest pain rule out ACS Patient reports ongoing chest pain, nonreproducible. Admitting troponin negative, troponin trends negative Admitting EKG: Normal sinus rhythm with no acute ST or T changes. 05/29 ECHO: Normal LV systolic function with EF of 60 to 65%, grade 1 diastolic dysfunction. Cardiology on board: Recommends starting losartan 50 with HCTZ 12.5, plan to uptitrate as necessary. Stress test as an outpatient. #. Elevated blood pressure Likely situational versus undiagnosed hypertension Patient started on losartan and hydrochlorothiazide. Will need outpatient BMP in a week time. #. Bronchitis Likely viral, equivocal response to outpatient doxycycline treatment We will continue with doxycycline. #. Other chronic medical condition Resume home meds as appropriate. #. DVT prophylaxis: Lovenox subcutaneous Full code Patient's Surekha Pitt contact #[phone]. Disposition: Possible discharge to home tomorrow if no new issues arises. Admission and Anticipated Discharge Date Admission Date: May 28, 2021 Subjective Patient was lying in bed, on room air, NAD, no new acute events overnight. Patient reports ongoing feeling of chest pain, nonreproducible. Patient's cardiac test and enzymes have turned out negative so far. Patient reports some nausea. And also decreasing appetite. Patient denies headache/dizziness/chills/belly pain/other review of symptoms. Physical Exam Physical Exam: GENERAL: Alert and oriented x3. NAD, on RA. Obese. HEENT: No pallor, no icterus. Pupils equal, round and reactive to light. Oral mucosa moist. NECK: No JVD, no neck masses. HEART: S1 and S2 heard. Regular rate and rhythm. No murmur, no gallop. RESPIRATORY SYSTEM: Normal AP diameter. No accessory muscle use. No wheezing, no crackles. ABDOMEN: Soft, bowel sounds present, nontender, no distention. CENTRAL NERVOUS SYSTEM: Alert and oriented x3. No facial droop. Speech is clear. Obeys simple commands. Moves extremities. EXTREMITIES: No edema, no erythema seen. Results & Data Results & Data ([facility]) Vital Signs (Past 12 Hours) Vital Signs Temp Pulse Pulse Resp BP BP Pulse Ox 05/29/21 17:07 36.6 C 106 H 20 136/85 98 05/29/21 16:00 105 H 17 146/84 H 94 05/29/21 15:00 102 H 15 162/92 H 91 05/29/21 14:03 105 H 19 93 05/29/21 13:00 95 H 14 174/105 H 98 05/29/21 12:00 100 H 15 96 05/29/21 11:00 76 16 96 05/29/21 10:00 77 16 190/98 H 97 05/29/21 08:00 73 15 05/29/21 06:30 71 15 05/29/21 06:00 71 14 05/29/21 05:41 88 17
[2021-05-29] MEDS ORDERED: SODIUM CHLORIDE 0.9% 500 ML IV ONE (23:09)
[2021-05-30] MEDS: ENOXAPARIN INJ 40 MG/0.4 ML SYR SQ SCH (08:42)
[2021-05-30] MEDS: DOXYCYCLINE HYCLATE 100 MG CAP PO SCH (08:43)
[2021-05-30] MEDS: MONTELUKAST SODIUM 10 MG TABLET PO SCH (08:43)
[2021-05-30] MEDS: PANTOprazole 40 MG TAB PO SCH (08:43)
[2021-05-30] MEDS: LOSARTAN/HCTZ 50/12.5MG TAB PO SCH (08:43)
--- NOTE | 2021-05-30 11:52 | Cardiology Progress Note ---
Date of Service May 30, 2021 Assessment & Plan (1) Atypical chest pain: (2) Rheumatoid arthritis: (3) CHENG (obstructive sleep apnea): (4) Hypertension: Plan: His chest discomfort is definitely atypical for angina and his ischemic work-up is unremarkable to this point. tolerating losartan/hctz well, bp now controlled ok to d/c to home from cardiac standpoint my office will call to arrange f/u with me in 1-2 weeks will need bmp in 1 week Admission and Anticipated Discharge Date Admission Date: May 28, 2021 Subjective Pt seen and examined, chart reviewed. States that he's feeling well. Chest discomfort resolved and denies sob or palpitations. tele reviewed: sinus rhythm without arrhythmia or significant ectopy. Review of Systems Review of Systems: All systems reviewed & are unremarkable except as noted in HPI & below Physical Exam Physical Exam: Physical Exam: General: Awake, alert and oriented x 3. No acute distress. HEENT: Normocephalic, atraumatic. Pupils equal, round and reactive to light and accommodation. Extraocular muscles are intact. Anicteric sclera. Moist mucous membranes. Neck: No JVD. No bruit. Cardiovascular: Regular. No S-4. Normal S-1 and S-2. No S-3. No murmurs, rubs or gallops. Pulmonary: Clear to auscultation bilaterally. No rales, rhonchi, or wheezing. Abdomen: Bowel sounds x 4, soft. No rebound, guarding or tenderness. No organomegaly. Extremities: No clubbing, cyanosis or edema. +2 pedal pulses bilaterally. Skin: Warm and dry. Results & Data ([facility]) Vital Signs (Past 12 Hours) Vital Signs Temp Pulse Pulse Resp BP Pulse Ox 05/30/21 07:29 63 05/30/21 07:02 36.6 C 78 17 125/74 97 05/30/21 04:32 36.5 C 82 17 126/74 95 05/29/21 23:57 128/74
--- NOTE | 2021-05-30 12:35 | Discharge Summary ---
Date of Service May 30, 2021 Admission HPI Per Admitting Provider History obtained from patient, family, and records. Medical history is significant for rheumatoid arthritis on Plaquenil and Areva, CHENG (CPAP intolerant), GERD, past tobacco abuse. 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 3 weeks ago, patient noted strange bruising on the left chest wall (under the breast) without recollection of trauma. Left pectoral ecchymosis noted on exam at PCP's office at that time. Outpatient ultrasound done 2 weeks ago showed echogenic subcutaneous tissue with small 3 x 2 x 5 mm cystic mass reflecting contusion versus mild resolving hematoma. Shortly after PCPs visit 3 weeks ago, patient noted cough productive of white sputum with wheezing, chest tightness, no shortness of breath. Sick contacts at home. Patient completed COVID-19 vaccination. PCP prescribed Doxycycline course on video appointment for possible atypical pneumonia. No outpatient x- rays done. Minimal improvement of cough symptoms to antibiotic regimen as per patient. Few hours ago, patient started feeling unwell. Subsequent nausea, dizziness, dry heaving followed by achy left-sided chest pain. Punching sensation as per patient. Not pleuritic. Chest pain not really worsened with coughing as per patient. Different from reflux. No actual abdominal pain. No unusual stress at home. No relief with nitroglycerin administered at the ER. MEDICAL HISTORY: As above. 2020 normal EGD SURGERIES: Appendectomy. FAMILY HISTORY: Heart disease. Grandfather had a heart attack at age 40. 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 Admission Exam Per Admitting Provider GENERAL: Comfortable, morbidly obese, slightly anxious, no respiratory distress SKIN: Normal color, warm HEENT: Partial alopecia, pink palpebral conjunctivae, no ptosis, dry buccal mucosa NECK : Supple, no tenderness CHEST : Decreased breath sounds, occasional expiratory wheezes, no chest wall tenderness HEART : RRR, no obvious murmurs ABDOMEN: Some distention, nontender RECTAL : Intact sphincter, brown stool (FOBT negative) EXTREMITIES : No LE swelling/tenderness, no other conspicuous deformities noted NEUROLOGIC : Coherent, no facial asymmetry, no other gross focality Principal Diagnosis Multiple chest pain Acute hypertension Discharge Exam GENERAL: Alert and oriented x3. NAD, on RA. Obese. HEENT: No pallor, no icterus. Pupils equal, round and reactive to light. Oral mucosa moist. NECK: No JVD, no neck masses. HEART: S1 and S2 heard. Regular rate and rhythm. No murmur, no gallop. RESPIRATORY SYSTEM: Normal AP diameter. No accessory muscle use. No wheezing, no crackles. ABDOMEN: Soft, bowel sounds present, nontender, no distention. CENTRAL NERVOUS SYSTEM: Alert and oriented x3. No facial droop. Speech is clear. Obeys simple commands. Moves extremities. EXTREMITIES: No edema, no erythema seen. Discharge Data Allergies Allergy/AdvReac Type Severity Reaction Status Date / Time adalimumab [From Humira] Allergy Unknown Unverified 05/28/21 20:20 Consultations 05/28/21 21:48 ED Decision to Admit Stat 05/28/21 23:48 Consult Cardiology Routine Ordered Studies 05/28/21 20:21 CT angio chest dissec wo/w con Stat Hospital Course (1) Atypical chest pain: (2) Hypertension: 46-year-old gentleman with medical history of RA on Plaquenil and Areva, CHENG [CPAP intolerant], GERD, past tobacco abuse presented 05/28 to our ED with complaint of left-sided chest pain few hours [employer] described as punching sensation per patient, not worsened with coughing and different from his reflux. He was managed for the following: #. Chest pain rule out ACS Patient reports ongoing chest pain, nonreproducible. Admitting troponin negative, troponin trends negative Admitting EKG: Normal sinus rhythm with no acute ST or T changes. 05/29 ECHO: Normal LV systolic function with EF of 60 to 65%, grade 1 diastolic dysfunction. Cardiology on board: Recommends starting losartan 50 with HCTZ 12.5, plan to uptitrate as necessary. Stress test as an outpatient. Follow-up PCP within a week time, follow-up with cardiology in 1 to 2 weeks. #. Elevated blood pressure Likely situational versus undiagnosed hypertension Patient started on losartan and hydrochlorothiazide. Advised to take BMP in a week time. #. Bronchitis Likely viral, equivocal response to outpatient doxycycline treatment We will continue with doxycycline for 5 more days #. Other chronic medical condition Resume home meds as appropriate. #. DVT prophylaxis: Lovenox subcutaneous while inpatient Full code Following instructions were communicated to the patient at the time discharge: Follow-up with your primary care physician within a week time. For your blood pressure, medications have been added, encourage to measure blood pressure twice daily and maintain a log to show to your primary care physician when you visit after discharge. Follow-up with your cardiology doctor in 1-2 weeks time, will need outpatient stress test. Get your blood work [BMP] done in 1 week upon discharge. Take medications as prescribed. Total Time Total Time Spent Total Time Spent (In Minutes): 35 Discharge Plan Discharge Items Patient Disposition: Home - Self-Care Reason For Visit: CHEST PAIN Discharge Diagnosis: Atypical chest pain Acute hypertension Condition on Discharge: Good Activity: Resume your previous activity Non-emergency contact: Primary Care Provider Call non-emergency contact if: you have any medication questions, your symptoms worsen and your pain is not controlled Follow-up/Referrals: Ward Ayala MD [Primary Care Provider] - (Date & Time 06/03/2021 3:20 PM Provider Ward Ayala MD Department Family [facility] ) Diet: Heart Healthy Addtl Attending Provider Instructions: Follow-up with your primary care physician within a week time. For your blood pressure, medications have been added, encourage to measure blood pressure twice daily and maintain a log to show to your primary care physician when you visit after discharge. Follow-up with your cardiology doctor in 1-2 weeks time, will need outpatient stress test. Get your blood work [BMP] done in 1 week upon discharge. Take medications as prescribed. Pending Studies at Discharge: No Stand-Alone Forms: My [facility] [employer], Smoking Cessation Medications and DC Order Prescriptions: New doxycycline hyclate 100 mg Capsule 100 mg PO BID 5 Days Qty: 10 RF: 0 losartan-hydrochlorothiazide 50-12.5 mg Tablet 1 tab PO QAM Qty: 30 RF: 0 Continued leflunomide 20 mg tablet 20 mg PO HS RF: 0 hydroxychloroquine [Plaquenil] 200 mg tablet 400 mg PO HS RF: 0 amitriptyline 10 mg tablet 40 mg PO HS RF: 0 cetirizine 10 mg Tablet 10 mg PO DAILY PRN (Reason: Allergy Symptoms) RF: 0 epinephrine [EpiPen 2-Dillon] 0.3 mg/0.3 mL auto-injector 0.3 mg IM Q3H PRN (Reason: bronchodilation) Qty: 1 RF: 0 omeprazole 20 mg capsule,delayed release(DR/EC) 20 mg PO BID RF: 0 montelukast 10 mg tablet 10 mg PO QAM RF: 0 Discontinued doxycycline hyclate 100 mg capsule 100 mg PO BID RF: 0 Discharge Orders: Discharge Order (Routine); Ordered 05/30/21 Ordered By: Victorina Aguilar Admission Data Admit Date/Time: 05/28/21 22:56 Attending Provider: Victorina Aguilar Admit Provider: Harry Gastelum Primary Care Provider: Ward Ayala Other Providers: Braden Cohen ; Sukumar Almodovar ; Rohit Cruz ; Chon Mckeon ; Jose Miguel Rocha ; Bird Pedraza ; Carmela Miner ; Huyen Chapa ; Flakita Lam ; Que Monterroso ; Harry Gastelum
--- NOTE | 2021-05-31 05:36 | Electrocardiogram Report ---
Test Reason : Blood Pressure : / mmHG Vent. Rate : 094 BPM Atrial Rate : 094 BPM P-R Int : 152 ms QRS Dur : 104 ms QT Int : 372 ms P-R-T Axes : 048 033 049 degrees QTc Int : 465 ms Normal sinus rhythm Possible Left atrial enlargement Incomplete right bundle branch block Borderline ECG When compared with ECG of 28-MAY-2021 18:22, No significant change was found Confirmed by Jcarlos Edwards ([id number]) on 05/31/2021 5:36:00 AM Referred By: REFERRED SELF Confirmed By:Jcarlos Edwards
== END 2021-05-30 13:47 | disposition home or self-care (01) ==
LOC: EDINP 18:09 → ED 18:09 → 2S 23:47